=== PATIENT | male | born 1955 | race Caucasian/White ===

== ENCOUNTER 2017-05-04 03:28 | Emergency (ER) | payer OTHER ==
[~2017-05-04] VITALS: Ht 167.6 cm; Wt 64.0 kg
[2017-05-04 03:46] VITALS: Ht 167.6 cm; Wt 64.0 kg
[2017-05-04] MEDS ORDERED: morphine 4 MG/ML VIAL IV STA (03:47)
[2017-05-04] MEDS ORDERED: SOD CHLORIDE 0.9% 500 ML IV STA (03:47)
[2017-05-04] MEDS ORDERED: ONDANSETRON 4 MG INJ IV STA (03:47)
[2017-05-04 04:05] LABS: BASOPHILS % 0.1 % (0.0-2.0); EOSINOPHILS # 0.1 10^3/ul (0.0-0.5); HEMATOCRIT 40.1 % (42.0-52.0); HEMOGLOBIN 13.6 g/dl (14.0-18.0); LYMPHOCYTES # 3.7 10^3/ul (0.8-2.9); LYMPHOCYTES % 41.7 % (15.0-51.0); MEAN CORPUSCULAR HEMOGLOBIN 30.4 pg (29.0-33.0); MEAN CORPUSCULAR HGB CONC 33.9 g/dl (32.0-37.0); MEAN CORPUSCULAR VOLUME 89.7 fl (82.0-101.0); MEAN PLATELET VOLUME 11.8 fl (7.4-10.4); MONOCYTE # 0.5 10^3/ul (0.3-0.9); MONOCYTES % 5.7 % (0.0-11.0); NEUTROPHILS % 51.3 % (39.0-77.0); PLATELET COUNT 181 10^3/UL (140-415); RED BLOOD COUNT 4.47 10^6/ul (4.70-6.10); RED CELL DISTRIBUTION WIDTH 12.5 % (11.5-14.5); WHITE BLOOD COUNT 8.8 10^3/ul (4.8-10.8)
[2017-05-04 04:27] LABS: ALBUMIN 4.1 g/dl (3.3-4.9); ALBUMIN/GLOBULIN RATIO 1.2; BILIRUBIN,INDIRECT 0.4 mg/dl (0-1.1); BILIRUBIN,TOTAL 0.4 mg/dl (0.2-1.3); CALCIUM 9.8 mg/dl (8.4-10.2); CREATININE 0.97 mg/dl (0.61-1.24); POTASSIUM 3.4 mmol/L (3.5-5.1); TOTAL PROTEIN 7.5 g/dl (6.1-8.1)
--- NOTE | 2017-05-04 05:34 | ERA ---
ER Documentation Chief Complaint Date/Time DATE: 05/04/17 TIME: 05:33 Chief Complaint RUQ abd pain since 2299, radiates to back and LUQ, dinner @ 2200 HPI 61-year-old male right upper quadrant abdominal pain since 2299. Radiates to his back. He started immediately after having dinner. No fevers no chills. Pain colicky in nature. Mild nausea but no vomiting. No other current complaints ROS All systems reviewed and are negative except as per history of present illness. Allergies Allergies: Coded Allergies: epinephrine (Verified Adverse Reaction, Intermediate, tachycardia, shakiness, 05/04/17) lidocaine (Verified Adverse Reaction, Intermediate, tachycardia, shakiness , 05/04/17) PMhx/Soc Medical and Surgical Hx: pt denies Medical Hx, pt denies Surgical Hx History of Surgery: No Anesthesia Reaction: No Hx Neurological Disorder: No Hx Respiratory Disorders: No Hx Cardiac Disorders: No Hx Psychiatric Problems: No Hx Miscellaneous Medical Probl: No Hx Alcohol Use: No Hx Substance Use: No Hx Tobacco Use: No Smoking Status: Never smoker Physical Exam Vitals Vital Signs Date Time Temp Pulse Resp B/P Pulse Ox O2 Delivery O2 Flow Rate FiO2 05/04/17 03:46 97.4 50 18 126/64 98 Physical Exam Const: [] Head: Atraumatic Eyes: Normal Conjunctiva ENT: Normal External Ears, Nose and Mouth. Neck: Full range of motion..~ No meningismus. Resp: Clear to auscultation bilaterally Cardio: Regular rate and rhythm, no murmurs Abd: Soft, non tender, non distended. Normal bowel sounds Skin: No petechiae or rashes Back: No midline or flank tenderness Ext: No cyanosis, or edema Neur: Awake and alert Psych: Normal Mood and Affect Result Diagram: 05/04/17 0341 05/04/17 0341 Results 24 hrs Laboratory Tests Test 05/04/17 03:41 White Blood Count 8.810^3/ul Red Blood Count 4.4710^6/ul Hemoglobin 13.6g/dl Hematocrit 40.1% Mean Corpuscular Volume 89.7fl Mean Corpuscular Hemoglobin 30.4pg Mean Corpuscular Hemoglobin Concent 33.9g/dl Red Cell Distribution Width 12.5% Platelet Count 71771^3/UL Mean Platelet Volume 11.8fl Neutrophils % 51.3% Lymphocytes % 41.7% Monocytes % 5.7% Eosinophils % 1.0% Basophils % 0.1% Nucleated Red Blood Cells % 0.0/100WBC Neutrophils # (Manual) 4.510^3/ul Lymphocytes # 3.710^3/ul Monocytes # 0.510^3/ul Eosinophils # 0.110^3/ul Basophils # 0.010^3/ul Nucleated Red Blood Cells # 0.010^3/ul Sodium Level 145mmol/L Potassium Level 3.4mmol/L Chloride Level 105mmol/L Carbon Dioxide Level 23mmol/L Anion Gap 20 Blood Urea Nitrogen 19mg/dl Creatinine 0.97mg/dl Glucose Level 101mg/dl Calcium Level 9.8mg/dl Total Bilirubin 0.4mg/dl Direct Bilirubin 0.00mg/dl Indirect Bilirubin 0.4mg/dl Aspartate Amino Transf (AST/SGOT) 26IU/L Alanine Aminotransferase (ALT/SGPT) 36IU/L Alkaline Phosphatase 51IU/L Total Protein 7.5g/dl Albumin 4.1g/dl Globulin 3.40g/dl Albumin/Globulin Ratio 1.20 Lipase 300U/L Current Medications Medications (Trade) Dose Ordered Sig/Alivia Route PRN Reason Start Time Stop Time Status Last Admin Dose Admin Sodium Chloride (NS) 500 ml @ 500 mls/hr Q1H STAT IV 05/04/17 03:47 05/04/17 04:46 DC 05/04/17 04:02 Morphine Sulfate (morphine) 4 mg ONCE STAT IV 05/04/17 03:47 05/04/17 03:48 DC 05/04/17 04:01 Ondansetron HCl (Zofran Inj) 4 mg ONCE STAT IV 05/04/17 03:47 05/04/17 03:48 DC 05/04/17 04:02 Procedures/MDM CBC: [no e/o of systemic infection or severe anemia] CMP: [no e/o severe acidosis, alkalosis, renal failure, diabetic ketoacidosis, liver disease] Lipase: [no e/o pancreatitis] PT/INR: [normal coagulation] Urine: [no e/o acute infection or hematuria] Ultrasound showed gallstones but no evidence of cholecystitis Medical decision makin-year-old male with biliary colic. At this point pain is resolved. Patient be discharged home with Lisbeth Brown. Follow-up in 8 hours for serial abdominal exams Departure Diagnosis: Primary Impression: Biliary colic Condition: Stable IVANIA SILVESTRE May 04, 2017 05:34
[2017-05-04] MEDS ORDERED: HYDR-902 PO (05:35)
[2017-05-04] MEDS ORDERED: ONDA4TAB14 PO (05:35)
[2017-05-04 05:58] VITALS: BP 103/71; PULSE 71; RESP 18
--- NOTE | 2017-05-04 06:26 | RADRPT ---
PROCEDURE: ULTRASOUND LIMITED ABDOMEN CLINICAL INDICATION: 61-year-old male with abdominal pain. TECHNIQUE: Multiple sonographic of the right upper quadrant of the abdomen were obtained. The imag es were reviewed on a PACS workstation. COMPARISON: None. FINDINGS: The pancreas is partially visualized and is otherwise without abnormal echogenicity. The liver displays normal echogenicity. The liver measures 15.1 cm in length. No evidence of intrah epatic biliary ductal dilatation is seen. The portal and hepatic veins are unremarkable. The gallbladder retains a solitary prominent shadowing stone within the gallbladder neck region. Wal l thickness is within normal limits measuring 2.9 mm. No pericholecystic fluid is seen. The common b ile duct measures 3.6 mm and is not dilated. The right kidney displays normal echogenicity. The right kidney measures 11.5 cm in maximal length. No caliectasis or hydronephrosis is seen. No free fluid is seen. IMPRESSION: Cholelithiasis. .Darell Brown MD, MD Date Time Electronically viewed and signed by .Darell Brown MD, on 05/04/2017 06:26 .M/
[2017-05-04 09:03] LABS: ADD UMIC NO; UR ASCORBIC ACID NEGATIVE (NEGATIVE); UR BILIRUBIN (Dip) NEGATIVE (NEGATIVE); UR BLOOD (Dip) NEGATIVE (NEGATIVE); UR CLARITY CLEAR (CLEAR); UR COLOR YELLOW (YELLOW); UR GLUCOSE (Dip) NEGATIVE (NEGATIVE); UR KETONES (Dip) NEGATIVE (NEGATIVE); UR LEUKOCYTE ESTERASE (Dip) NEGATIVE Leu/ul (NEGATIVE); UR NITRITE (Dip) NEGATIVE (NEGATIVE); UR SPECIFIC GRAVITY (Dip) 1.018 (1.003-1.030); UR TOTAL PROTEIN (Dip) NEGATIVE (NEGATIVE); UR UROBILINOGEN (Dip) 2+ mg/dL (NEGATIVE)
== END 2017-05-04 05:59 | disposition home or self-care (01) ==
LOC: E/R 03:28
DX: K80.50 Calculus of bile duct without cholangitis or cholecystitis without obstruction (principal); R11.0 Nausea
CPT/HCPCS: 36415; 76705; 80053; 81003; 83690; 85025; 96374; 96375; 99285; J2270; J2405; J7040